=== PATIENT | female | born 2000 ===

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

== ENCOUNTER → 2021-11-17 | Outpatient (CLI) | payer BC, OTHER | LOC: LAB 09:04 → LAB SHORT 09:04 | DX: R30.0 Dysuria (principal); R31.9 Hematuria, unspecified | CPT/HCPCS: 87077; 87086; 87186 ==

== ENCOUNTER → 2021-11-20 | Outpatient (CLI) | payer OTHER, BC ==
[2021-11-20 15:12] LABS: BASOPHILS ABSOLUTE AUTO 0.05 K/mm3 (0.00-0.23); BASOPHILS PERCENT AUTO 1 % (0-2); EOSINOPHILS ABSOLUTE AUTO 0.01 K/mm3 (0.00-0.68); EOSINOPHILS PERCENT AUTO 0 % (0-6); Hematocrit 46.2 % (33.0-51.0); Hemoglobin 16.5 g/dL (11.5-16.0); IMMATURE GRAN ABSOLUTE AUTO 0.04 K/mm3 (0.00-0.10); IMMATURE GRAN PERCENT AUTO 0 % (0-1); LYMPHOCYTES ABSOLUTE AUTO 1.23 K/mm3 (0.84-5.20); LYMPHOCYTES PERCENT AUTO 13 % (21-46); MONOCYTES ABSOLUTE AUTO 0.58 K/mm3 (0.16-1.47); MONOCYTES PERCENT AUTO 6 % (4-13); Mean Corpuscular HGB 32.2 pg (26.0-34.0); Mean Corpuscular HGB Conc 35.7 g/dL (31.5-36.5); Mean Corpuscular Volume 90 fL (80-100); Mean Platelet Volume 9.2 fL (9.1-12.4); NEUTROPHILS ABSOLUTE AUTO 7.31 K/mm3 (1.96-9.15); NEUTROPHILS PERCENT AUTO 79 % (41-73); Platelet Count 372 K/mm3 (150-400); RDW Standard Deviation 39.8 fL (35.1-46.3); Red Blood Cell Count 5.12 M/mm3 (3.80-5.20); White Blood Cell Count 9.22 K/mm3 (4.00-11.30)
[2021-11-20 15:26] LABS: Albumin, Blood 4.3 g/dL (3.4-5.0); Albumin/Globulin Ratio 1.1 (0.8-1.8); Bilirubin, Total 0.8 mg/dL (0.1-1.0); Bun/Creatinine Ratio 10.6 (12.0-20.0); Calcium, Blood 9.1 mg/dL (8.5-10.1); Creatinine, Blood 0.66 mg/dL (0.40-1.00); Magnesium, Blood 2.2 mg/dL (1.6-2.4); Potassium, Blood 3.5 mmol/L (3.5-5.5); Total Protein, Blood 8.3 g/dL (6.4-8.2)
== END | disposition home or self-care (01) ==
LOC: LAB 14:30 → LAB SHORT 14:30
PROVIDERS: Nurse Practitioner Family
DX: R11.2 Nausea with vomiting, unspecified (principal)
CPT/HCPCS: 80053; 83690; 83735; 84145; 84703; 85025; 87086

== ENCOUNTER → 2022-02-08 | Outpatient (CLI) | payer BC ==
[2022-02-08 20:40] LABS: Candida species (DNA Probe) Negative (NEGATIVE); G. vaginalis (DNA Probe) Positive (NEGATIVE); T. vaginalis (DNA Probe) Negative (NEGATIVE)
== END | disposition home or self-care (01) ==
LOC: LAB SHORT 18:20
PROVIDERS: Physician Assistant
DX: N76.0 Acute vaginitis (principal)
CPT/HCPCS: 87480; 87510; 87660

== ENCOUNTER → 2023-07-27 | Outpatient (CLI) | payer BC, OTHER ==
[2023-07-27 15:25] LABS: Bacterial Vaginosis PCR Negative (NEGATIVE); Candida Group, PCR NOT DETECTED (NOT DETECT)
[2023-07-27 15:49] LABS: Candida glabrata-krusei, PCR DETECTED (NOT DETECT)
== END | disposition home or self-care (01) ==
LOC: LAB SHORT 09:52 → LAB 09:52
PROVIDERS: Obstetrics & Gynecology
DX: N89.8 Other specified noninflammatory disorders of vagina (principal)
CPT/HCPCS: 87481; 87661; 87801

== ENCOUNTER → 2023-07-27 | Outpatient (CLI) | payer BC, OTHER ==
[2023-07-29 05:04] LABS: APTIMA MEDIA TYPE Unisex Swab; C. TRACHOMATIS BY TMA Negative (Negative); N. GONORRHOEAE BY TMA Negative (Negative); SPECIMEN SOURCE Cervical/Vag
== END | disposition home or self-care (01) ==
LOC: LAB 09:52 → LAB SHORT 09:52
PROVIDERS: Obstetrics & Gynecology
DX: Z11.3 Encounter for screening for infections with a predominantly sexual mode of transmission (principal)
CPT/HCPCS: 87491; 87591